=== PATIENT | female | born 1955 | race American Indian/Alaskan Native ===

== ENCOUNTER 2016-06-23 12:51 | Outpatient (CLI) | payer OTHER ==
--- NOTE | 2016-06-23 13:50 | XRay Report ---
RIGHT HAND: Pain. The bony architecture is intact. Bony alignment is normal. No soft tissue abnormalities are seen. The joint spaces appear preserved. IMPRESSION: Normal right hand.
== END 2016-06-23 12:52 | disposition home or self-care (01) ==
LOC: SPVIMAG 12:51
PROVIDERS: ATTEND Internal Medicine
DX: M79.641 Pain in right hand (principal)

== ENCOUNTER 2018-02-25 00:48 | Inpatient (IN) | payer OTHER ==
--- NOTE | 2018-02-25 01:42 | XRay Report ---
FINAL REPORT EXAM: XR CHEST ROUTINE 2V HISTORY: Shortness of breath TECHNIQUE: PA and lateral views of the chest were submitted. There are no previous studies available for comparison. FINDINGS: The heart is mildly enlarged. The lungs are diffusely congested with interstitial edema and thickenin g of the fissures. Pleural effusion is not seen. There are no localized infiltrates. The skeletal str uctures appear well maintained. IMPRESSION: Cardiomegaly with congestive heart failure pattern.
[2018-02-25] MEDS ORDERED: NITRO-BID 2% TP ONE (02:15)
[2018-02-25] MEDS ORDERED: ZOFRAN IV ONE (02:15)
[2018-02-25] MEDS ORDERED: SUBLIMAZE IV ONE (02:15)
[2018-02-25] MEDS ORDERED: ASPIRIN PO ONE (02:16)
--- NOTE | 2018-02-25 02:19 | Emergency Department Report ---
HPI - General Chief Complaint: Dyspnea/Respdistress Time Seen by Provider: 02/25/18 02:01 - [facility] HPI: Room 4 The patient is a 62-year-old female presenting with chief complaint of shortness breath and chest tightness. The patient states for the past 2-3 weeks she's had a dry cough and intermittent chest tightness associated with shortness of breath. Patient denies nausea/vomiting or diaphoresis. Patient admits to orthopnea and dyspnea on exertion. The patient states she went to [facility] yesterday and was diagnosed with bronchitis. Patient states she was given nebulizers and steroids but no lab work was performed. Location: Chest, lungs Duration: Intermittent 2-3 weeks Quality: Tightness, shortness of breath Severity: Moderate Modifying factors: [see above] Context: [see above] Mode of transportation: [not driving] ED Past Medical Hx - Past Medical History Hx Arthritis: Yes (Rheumatoid) Hx Asthma: Yes Additional medical history: Lupus - Surgical History Hx Cholecystectomy: Yes Additional Surgical History: Hysterectomy - Family History Family history: no significant - Social History Smoking Status: Former Smoker (stopped smoking yesterday) Substance Use Type: None (denies illicit drug use), Alcohol (occasional) ED Review of Systems ROS: Stated complaint: CHEST PAIN SOB Other details as noted in HPI Constitutional: denies: fever Eyes: denies: eye pain ENT: denies: throat pain Respiratory: cough, orthopnea, shortness of breath, SOB with exertion Cardiovascular: chest pain Endocrine: no symptoms reported Gastrointestinal: denies: abdominal pain Genitourinary: denies: dysuria Musculoskeletal: arthralgia. denies: back pain Neurological: denies: headache Physical Exam - Physical Exam Vital Signs: Vital Signs 02/25/18 01:08 Temperature 98.3 F Pulse Rate 105 H Respiratory 28 H Rate Blood Pressure 166/97 O2 Sat by Pulse 96 Oximetry Physical Exam: GENERAL: The patient is well-developed well-nourished female lying on stretcher not appearing to be in acute distress. [] HEENT: Normocephalic. Atraumatic. Extraocular motions are intact. Patient has moist mucous membranes. NECK: Supple. Trachea midline CHEST/LUNGS: Clear to auscultation. There is no respiratory distress noted. HEART/CARDIOVASCULAR: Regular. There is no tachycardia. There is no gallop rub or murmur. ABDOMEN: Abdomen is soft, nontender. Patient has normal bowel sounds. There is no abdominal distention. SKIN: There is no rash. There is no edema. There is no diaphoresis. NEURO: The patient is awake, alert, and oriented. The patient is cooperative. The patient has normal speech MUSCULOSKELETAL: There is no evidence of acute injury. ED Course Vital Signs 02/25/18 01:08 Temperature 98.3 F Pulse Rate 105 H Respiratory 28 H Rate Blood Pressure 166/97 O2 Sat by Pulse 96 Oximetry ED Medical Decision Making - Lab Data Result diagrams: 02/25/18 03:00 02/25/18 03:00 Laboratory Tests 02/25/18 02/25/18 02/25/18 03:00 03:00 03:00 WBC 8.3 RBC 4.75 Hgb 11.0 Hct 34.2 MCV 72 L MCH 23 L MCHC 32 RDW 16.1 H Plt Count 195 Lymph % (Auto) 10.7 L [place] % (Auto) 7.4 H Eos % (Auto) 0.4 Baso % (Auto) 1.0 Lymph # 0.9 L [place] # 0.6 Eos # 0.0 Baso # 0.1 Seg Neutrophils % 80.5 H Seg Neutrophils # 6.7 PT INR APTT Sodium 140 Potassium 4.0 Chloride 104.6 Carbon Dioxide 22 Anion Gap 17 BUN 12 Creatinine 0.7 Estimated GFR > 60 BUN/Creatinine Ratio 17 Glucose 112 H Calcium 8.8 Total Creatine Kinase 432 H CK-MB (CK-2) 2.1 CK-MB (CK-2) Rel Index 0.4 Troponin T < 0.010 NT-Pro-B Natriuret Pep 908.0 H 02/25/18 03:00 WBC RBC Hgb Hct MCV MCH MCHC RDW Plt Count Lymph % (Auto) [place] % (Auto) Eos % (Auto) Baso % (Auto) Lymph # [place] # Eos # Baso # Seg Neutrophils % Seg Neutrophils # PT 14.2 INR 1.06 APTT 29.2 Sodium Potassium Chloride Carbon Dioxide Anion Gap BUN Creatinine Estimated GFR BUN/Creatinine Ratio Glucose Calcium Total Creatine Kinase CK-MB (CK-2) CK-MB (CK-2) Rel Index Troponin T NT-Pro-B Natriuret Pep - EKG Data -: EKG Interpreted by Me EKG shows normal: sinus rhythm Rate: tachycardia (109 bpm) - EKG Data When compared to previous EKG there are: previous EKG unavailable Interpretation: nonspecific ST-T wave sarah (T-wave inversion in lead aVL) - Radiology Data Radiology results: report reviewed (chest x-ray), image reviewed (chest x-ray) interpreted by me: Chest x-ray-mild cephalization. No focal infiltrates, no pneumothorax [facility] [address] [place] [address] XRay Report Signed Patient: SOY MAYA MR#: [id number] : 1955 Acct:[id number] Age/Sex: 62 / F ADM Date: 02/25/18 Loc: ED Attending Dr: Ordering Physician: DANTE ORTEGA MD Date of Service: 02/25/18 Procedure(s): XR chest routine 2V Accession Number(s): [id number] cc: ED MD SHANNON Fluoro Time In Minutes: FINAL REPORT EXAM: XR CHEST ROUTINE 2V HISTORY: Shortness of breath TECHNIQUE: PA and lateral views of the chest were submitted. There are no previous studies available for comparison. FINDINGS: The heart is mildly enlarged. The lungs are diffusely congested with interstitial edema and thickening of the fissures. Pleural effusion is not seen. There are no localized infiltrates. The skeletal structures appear well maintained. IMPRESSION: Cardiomegaly with congestive heart failure pattern. Transcribed By: RB Dictated By: GUILLERMO ZAVALA MD Electronically Authenticated By: GUILLERMO ZAVALA MD Signed Date/Time: 02/25/18141 DD/ 3 TD/TT: 02/25/18143 - Differential Diagnosis CHF, ACS, pericarditis, GERD Critical care attestation.: If time is entered above; I have spent that time in minutes in the direct care of this critically ill patient, excluding procedure time. ED Disposition Clinical Impression: Chest tightness, Shortness of breath, CHF (congestive heart failure) Disposition: OP ADMIT IP TO THIS HOSP Is pt being admited?: Yes Does the pt Need Aspirin: Yes Condition: Fair Time of Disposition: 03:35 (hospitalist paged (Dr. Lucita Savage))
[2018-02-25 03:10] LABS: Basophils # (Auto) 0.1 K/mm3 (0.0-0.1); Eosinophils % (Auto) 0.4 % (0.0-4.3); Hematocrit 34.2 % (30.3-42.9); Lymphocytes # (Auto) 0.9 K/mm3 (1.2-5.4); Lymphocytes % (Auto) 10.7 % (13.4-35.0); Mean Corpuscular HGB Conc 32 % (30-34); Mean Corpuscular Volume 72 fl (79-97); Monocytes # (Auto) 0.6 K/mm3 (0.0-0.8); Monocytes % (Auto) 7.4 % (0.0-7.3); Platelet Count 195 K/mm3 (140-440); Red Blood Count 4.75 M/mm3 (3.65-5.03); Red Cell Distribution Width 16.1 % (13.2-15.2)
[2018-02-25 03:20] LABS: INR 1.06 (0.87-1.13)
[2018-02-25 03:21] LABS: Partial Thromboplastin Time 29.2 Sec. (24.2-36.6)
[2018-02-25 03:32] LABS: BUN/Creatinine Ratio 17; Blood Urea Nitrogen 12 mg/dL (7-17); Calcium 8.8 mg/dL (8.4-10.2); Creatine Kinase MB 2.1 ng/mL (0.0-4.0); Hemolysis Index 5
[2018-02-25] MEDS ORDERED: LASIX IV ONE (03:33)
--- NOTE | 2018-02-25 04:25 | History and Physical Report ---
History of Present Illness Date of examination: 02/25/18 History of present illness: 62-year-old woman with a history of asthma, lupus comes emergency room with complaints of shortness breath, PND and orthopnea 2 weeks denies lower extremity edema. Also complaining of chest pain in the epigastric area, stating it feels like a tightness, someone sitting on her chest, unclear along in the hospital, intermittent over the last 3 days, intensity 5/10 coronary lesion, cannot identify exacerbating factors. Review of systems Constitutional: no weight loss, chills, fever Ears, eyes, nose, mouth and throat: no nasal congestion, no nasal discharge, no sinus pressure, no vision change, no red eye. Neck: No neck pain or rigidity. Cardiovascular: no palpitations, +chest pain Respiratory: no cough, +shortness of breath Gastrointestinal: no hematochezia, abdominal pain Genitourinary : no frequency , no hematuria Musculoskeletal: no joint swelling or muscle ache Integumentary: no rash, no pruritis Neurological: no parathesias, no focal weakness Endocrine: no cold or heat intolerance, no polyuria or polydipsia Hematologic/Lymphatic: no easy bruising, no easy bleeding, no gland swelling Allergic/Immunologic: no urticaria, no angioedema. PAST MEDICAL HISTORY: asthma, lupus PAST SURGICAL HISTORY: Cholecystectomy, hysterectomy SOCIAL HISTORY: Social alcohol, no drugs, smokes several cigarettes a day FAMILY HISTORY: Hypertension Medications and Allergies Allergies Allergy/AdvReac Type Severity Reaction Status Date / Time Sulfa (Sulfonamide Allergy Hives Verified 02/25/18 04:29 Antibiotics) Home Medications Medication Instructions Recorded Confirmed Last Taken Type Alendronate Sodium [Fosamax] 70 mg PO 1XW 02/25/18 02/25/18 Unknown History Doxycycline Hyclate [Vibramycin] 100 mg PO BID 02/25/18 02/25/18 Unknown History Ferrous Sulfate [Iron] 325 mg PO DAILY 02/25/18 02/25/18 Unknown History Hydroxychloroquine 200 mg PO BID 02/25/18 02/25/18 Unknown History Leflunomide 20 mg PO DAILY 02/25/18 02/25/18 Unknown History guaiFENesin/DEXTROMETHORPHAN 100 mg PO TID PRN 02/25/18 02/25/18 Unknown History [Robafen Dm Cgh-Chest John Syrp] methylPREDNISolone 4 mg PO DAILY 02/25/18 02/25/18 Unknown History predniSONE 5 mg PO DAILY 02/25/18 02/25/18 Unknown History Exam - Physical Exam Narrative exam: General Apperance: The patient lying in bed, breathing comfortable HEENT: Normocephalic, atraumatic. Pupils equally round and reactive to light, EOMI, no sclericterus or JVD or thyromegaly or nodule. , no carotid bruit, mucous membranes moist, no exudate or erythema Heart: S1-S2, regular is rhythm Lungs: Crackles bilaterally, breathing comfortable Abdomen: Positive bowel sounds, soft, nontender, nondistended, no organomegaly Extremities: No edema cyanosis clubbing Skin: no rash, nodule, warm and dry Neuro: cranial nerves 2-12 intact, speech is fluent, motor/sensory intact - Constitutional Vitals: Temp Pulse Resp BP Pulse Ox 98.3 F 92 H 17 159/98 97 02/25/18 01:08 02/25/18 04:00 02/25/18 04:00 02/25/18 04:00 02/25/18 04:00 Results - Labs CBC & Chem 7: 02/25/18 03:00 02/25/18 03:00 Labs: Abnormal lab results 02/25/18 02/25/18 02/25/18 Range/Units 03:00 03:00 03:00 MCV 72 L (79-97) fl MCH 23 L (28-32) pg RDW 16.1 H (13.2-15.2) % Lymph % (Auto) 10.7 L (13.4-35.0) % [place] % (Auto) 7.4 H (0.0-7.3) % Lymph # 0.9 L (1.2-5.4) K/mm3 Seg Neutrophils % 80.5 H (40.0-70.0) % Glucose 112 H (65-100) mg/dL Total Creatine Kinase 432 H (30-135) units/L NT-Pro-B Natriuret Pep 908.0 H (0-900) pg/mL - Imaging and Cardiology EKG: image reviewed Chest x-ray: report reviewed Assessment and Plan Assessment new onset CHF, ?diasytolic Hypertensive urgency Chest pain Asthma Lupus Plan Admit to medicine Diurese and IV Lasix and lites are metabolic, ANIL inhibitor, aspirin Check cardiac enzymes, d-dimer, echo, stress test Consult cardiology Continue outpatient medications DVT prophylaxis
[2018-02-25] MEDS ORDERED: ZOFRAN IV PRN (04:26)
[2018-02-25] MEDS ORDERED: TYLENOL PO PRN (04:26)
[2018-02-25] MEDS ORDERED: SODIUM CHLORIDE FLUSH SYRINGE 10 ML IV PRN (04:26)
--- NOTE | 2018-02-25 08:25 | Progress Note ---
Assessment and Plan Assessment and plan: Patient is a 62 yo woman with a history of Asthma, RA and SLE under the care of Dr. Lima Meraz, recreational assistant presented to [facility] ED with worsening SOB and chest discomfort. Patient was seen at [facility] ED on Sunday and sent home on doxyc, neb, cough med, steroids and sent home for asthma attack. * 2v CXR: Cardiomegaly with CHF pattern. * pBNP 908 -Acute Diastolic Heart Failure: lasix, Echo, Cardiology consult -Chest pain, atypical: stress test pending -SLE and RA, just weaned off steroids 3 weeks prior to this illness, she was on steroids for about a year, now on plaquenil and leflunamide instead. -Asthma: o2 prn and nebs -Tobacco dependency: litigation counsel on stopping, ordered nicotine patch prolonged inpatient services 34 minutes History Interval history: Patient was seen and examined. Follow-up on current diagnosis of SOB. Overnight uneventful. Patient denies any chest pain, shortness breath, nausea/vomiting or severe headaches. Imaging, nursing note, chart, labs and old chart reviewed. Discussed with patient. Hospitalist Physical - Physical exam Narrative exam: Gen: thin, NAD, Awake, Alert, Orientated HEENT: NCAT, EOMI, PERRL, OP Clear Neck: supple, no adenopathy, no thyromegaly, no JVD CVS/Heart: RRR, normal S1S2, pulses present bilaterally Chest/Lungs: faint crackles left base, Symmetrical chest expansion, good air entry bilaterally GI/Abdomen: soft, NTND, good bowel sounds, no guarding or rebound /Bladder: no suprapubic tenderness, no CVA or paraspinal tenderness Extermity/Skin: no c/c/e, no obvious rash MSK: FROM x 4 Neuro: CN 2-12 grossly intact, no new focal deficits Psych: calm - Constitutional Vitals: Temp Pulse Resp BP Pulse Ox 98.0 F 93 H 16 151/90 98 02/25/18 05:17 02/25/18 05:17 02/25/18 05:17 02/25/18 05:17 02/25/18 05:17 Results - Labs CBC & Chem 7: 02/25/18 03:00 02/25/18 03:00 Labs: Laboratory Last Values WBC 8.3 K/mm3 (4.5-11.0) 02/25/18 03:00 RBC 4.75 M/mm3 (3.65-5.03) 02/25/18 03:00 Hgb 11.0 gm/dl (10.1-14.3) 02/25/18 03:00 Hct 34.2 % (30.3-42.9) 02/25/18 03:00 MCV 72 fl (79-97) L 02/25/18 03:00 MCH 23 pg (28-32) L 02/25/18 03:00 MCHC 32 % (30-34) 02/25/18 03:00 RDW 16.1 % (13.2-15.2) H 02/25/18 03:00 Plt Count 195 K/mm3 (140-440) 02/25/18 03:00 Lymph % (Auto) 10.7 % (13.4-35.0) L 02/25/18 03:00 [place] % (Auto) 7.4 % (0.0-7.3) H 02/25/18 03:00 Eos % (Auto) 0.4 % (0.0-4.3) 02/25/18 03:00 Baso % (Auto) 1.0 % (0.0-1.8) 02/25/18 03:00 Lymph # 0.9 K/mm3 (1.2-5.4) L 02/25/18 03:00 [place] # 0.6 K/mm3 (0.0-0.8) 02/25/18 03:00 Eos # 0.0 K/mm3 (0.0-0.4) 02/25/18 03:00 Baso # 0.1 K/mm3 (0.0-0.1) 02/25/18 03:00 Seg Neutrophils % 80.5 % (40.0-70.0) H 02/25/18 03:00 Seg Neutrophils # 6.7 K/mm3 (1.8-7.7) 02/25/18 03:00 PT 14.2 Sec. (12.2-14.9) 02/25/18 03:00 INR 1.06 (0.87-1.13) 02/25/18 03:00 APTT 29.2 Sec. (24.2-36.6) 02/25/18 03:00 Sodium 140 mmol/L (137-145) 02/25/18 03:00 Potassium 4.0 mmol/L (3.6-5.0) 02/25/18 03:00 Chloride 104.6 mmol/L (98-107) 02/25/18 03:00 Carbon Dioxide 22 mmol/L (22-30) 02/25/18 03:00 Anion Gap 17 mmol/L 02/25/18 03:00 BUN 12 mg/dL (7-17) 02/25/18 03:00 Creatinine 0.7 mg/dL (0.7-1.2) 02/25/18 03:00 Estimated GFR > 60 ml/min 02/25/18 03:00 BUN/Creatinine Ratio 17 % 02/25/18 03:00 Glucose 112 mg/dL (65-100) H 02/25/18 03:00 Calcium 8.8 mg/dL (8.4-10.2) 02/25/18 03:00 Total Creatine Kinase 432 units/L (30-135) H 02/25/18 03:00 CK-MB (CK-2) 2.1 ng/mL (0.0-4.0) 02/25/18 03:00 CK-MB (CK-2) Rel Index 0.4 (0-4) 02/25/18 03:00 Troponin T < 0.010 ng/mL (0.00-0.029) 02/25/18 03:00 NT-Pro-B Natriuret Pep 908.0 pg/mL (0-900) H 02/25/18 03:00
[2018-02-25 09:47] LABS: Creatine Kinase MB 2.2 ng/mL (0.0-4.0)
[2018-02-25] MEDS: LOPRESSOR PO SCH ×2 (09:49→23:04)
[2018-02-25] MEDS: ZESTRIL PO SCH (09:50)
[2018-02-25] MEDS: LOVENOX SUB-Q SCH (09:50)
[2018-02-25] MEDS: ASPIRIN PO SCH (09:50)
[2018-02-25] MEDS: SODIUM CHLORIDE FLUSH SYRINGE 10 ML IV SCH ×2 (09:51→23:03)
--- NOTE | 2018-02-25 12:46 | Event Note ---
Date: 02/25/18 Cardiology consultation is dictated. #1 chest pain etiology uncertain cardiac enzymes are negative. #2? Mild CHF probable diastolic heart failure #3 history of bronchial asthma and possible bronchitis within the past several days. #4 mitral regurgitation Patient is seen for cardiac evaluation overall cardiac status is stable. Echocardiogram shows the normal left ventricular systolic function. Patient does have mitral regurgitation. Current medications are reviewed and will continue the same for the time being. Will obtain a stress test once her pulmonary and cardiac status appeared to be better and more stable. Thank you Dr. Mixon for allowing me to participate in the care of this pleasant lady Dr. NAVDEEP Cote
[2018-02-25 12:49] LABS: Creatine Kinase MB 2.1 ng/mL (0.0-4.0)
--- NOTE | 2018-02-25 14:33 | Consultation ---
CARDIOLOGY EVALUATION REFERRING PHYSICIAN: Dr. Capps REASON FOR EVALUATION: Chest pain. HISTORY OF PRESENT ILLNESS: The patient is a 62-year-old female who is known to have a history of bronchial asthma and lupus came to the Emergency Room complaining about difficulty in breathing of about couple of weeks' duration. The patient was seen at Emergency Room at [facility] and was given a breathing treatment and was subsequently discharged. Intermittently, she notices tightness of the chest, but she feels that she is noticing when she has bronchospasm. She has no prior history of myocardial infarction, congestive heart failure, rheumatic fever, cardiac murmur, or other cardiovascular issues. No history of hypertension, diabetes, or hyperlipidemia. SOCIAL HISTORY: The patient smokes half pack per day, drinks alcohol occasionally. FAMILY HISTORY: Only positive for hypertension. REVIEW OF SYSTEMS: HEAD, EYES, EARS, NOSE AND THROAT: No symptoms. ENDOCRINE: No history of diabetes. GASTROINTESTINAL: No abdominal pain, nausea, or vomiting. Bowel habits have been regular. GENITOURINARY: No symptoms. CENTRAL NERVOUS SYSTEM: No symptoms. HEME/ONC: No symptoms. LOCOMOTOR: No symptoms. PAST HISTORY: History of cholecystectomy and hysterectomy. PHYSICAL EXAMINATION: GENERAL: Adult female, well built and nourished, in no distress. Pleasant and cooperative. VITAL SIGNS: Blood pressure is 139/82, pulse 75, respirations 18, oxygen saturation is 100%. HEAD, EYES, EARS, NOSE, AND THROAT: Unremarkable. NECK: Supple. No thyromegaly. Both carotids are palpable and equal. Neck veins are flat. CHEST: Symmetrical. LUNGS: Essentially clear. HEART: S1 and S2 are heard well. No S3. ABDOMEN: Soft, nontender. No hepatosplenomegaly. EXTREMITIES: No edema or calf tenderness. IMAGING DATA: EKG: Sinus tachycardia, left atrial abnormality, possible left ventricular hypertrophy. LABORATORY DATA: Hemoglobin 11, hematocrit 34.2. D-dimer 626. Sodium 140, potassium 4, BUN 12, creatinine 0.7, blood sugar 112. BNP 908. Troponin x 2 negative. CK-MB negative. Echocardiogram: Left ventricular chamber size is normal. Ejection fraction 50-55%. Moderate mitral regurgitation is present. Mild tricuspid regurgitation is present. Mean gradient across mitral valve is noted to be 8 mmHg. Chest x-ray: Cardiomegaly with mild pulmonary vascular congestion. IMPRESSION: 1. Chest tightness of questionable significance. 2. History of asthma. 3. ? Mild congestive heart failure. The patient is seen for cardiac evaluation. Clinically, cardiac status appears to be satisfactory. Echocardiogram shows normal left ventricular systolic function. Current medications are reviewed. We will continue the same. The patient will be monitored and followed closely with you. Thank you, Dr. Capps, for allowing me to participate in the care of this pleasant lady. JOB# [id number] CORNEL/NTS
[2018-02-25] MEDS: HABITROL TD SCH (17:37)
[2018-02-25] MEDS: LASIX PO SCH ×2 (17:37→23:04)
[2018-02-26] MEDS: LASIX PO SCH ×2 (05:14→18:42)
[2018-02-26 06:21] LABS: Eosinophils # (Auto) 0.2 K/mm3 (0.0-0.4); Eosinophils % (Auto) 5.2 % (0.0-4.3); Hematocrit 32.2 % (30.3-42.9); Hemoglobin 10.6 gm/dl (10.1-14.3); Lymphocytes % (Auto) 44.5 % (13.4-35.0); Mean Corpuscular HGB Conc 33 % (30-34); Mean Corpuscular Volume 72 fl (79-97); Monocytes # (Auto) 0.6 K/mm3 (0.0-0.8); Monocytes % (Auto) 13.8 % (0.0-7.3); Platelet Count 185 K/mm3 (140-440); Red Blood Count 4.49 M/mm3 (3.65-5.03); Red Cell Distribution Width 16.6 % (13.2-15.2)
[2018-02-26 06:41] LABS: BUN/Creatinine Ratio 21; Blood Urea Nitrogen 17 mg/dL (7-17); Calcium 8.6 mg/dL (8.4-10.2); Hemolysis Index 0
[2018-02-26] MEDS ORDERED: LEXISCAN IV ONE ×2 (11:06→11:08)
[2018-02-26] MEDS: ASPIRIN PO SCH (13:19)
[2018-02-26] MEDS: HABITROL TD SCH (13:19)
[2018-02-26] MEDS: ZESTRIL PO SCH (13:19)
[2018-02-26] MEDS: LOPRESSOR PO SCH ×2 (13:19→21:21)
[2018-02-26] MEDS: LOVENOX SUB-Q SCH (13:20)
--- NOTE | 2018-02-26 14:13 | Progress Note ---
Assessment and Plan S/p lexiscan MPI stress test this AM which was negative for ischemia, EF 58%. Currently stable cardiac status. Pt may discharge home from cardiology standpoint. Recommend follow up in our office with Dr. NAVDEEP Cote within 3-5 days of hospital discharge ([phone]). The patient has been seen in conjunction with Dr. NAVDEEP Cote who agrees with the assessment and plan of care. - Patient Problems (1) Chest pain Current Visit: Yes Status: Resolved (2) Acute heart failure with preserved ejection fraction Current Visit: Yes Status: Acute (3) Moderate mitral regurgitation Current Visit: Yes Status: Chronic (4) History of asthma Current Visit: Yes Status: Chronic Subjective Date of service: 02/26/18 Principal diagnosis: cp Interval history: for stress test, no current cardiac complaints. Objective Last Vital Signs Temp 98.0 F 02/26/18 13:36 Pulse 85 02/26/18 13:35 Resp 20 02/26/18 13:35 BP 144/89 02/26/18 13:35 Pulse Ox 99 02/26/18 13:35 - Physical Examination General: No Apparent Distress HEENT: Positive: PERRL, Normocephaly, Mucus Membranes Moist Neck: Positive: neck supple, trachea midline Cardiac: Positive: Reg Rate and Rhythm, S1/S2 Lungs: Positive: clear to auscultation Neuro: Positive: Grossly Intact Abdomen: Positive: Soft. Negative: Tender Skin: Negative: Rash, Wound Musculoskeletal: No Pain - Labs and Meds CBC 02/26/18 Range/Units 05:36 WBC 4.6 (4.5-11.0) K/mm3 RBC 4.49 (3.65-5.03) M/mm3 Hgb 10.6 (10.1-14.3) gm/dl Hct 32.2 (30.3-42.9) % Plt Count 185 (140-440) K/mm3 Lymph # 2.0 (1.2-5.4) K/mm3 [place] # 0.6 (0.0-0.8) K/mm3 Eos # 0.2 (0.0-0.4) K/mm3 Baso # 0.0 (0.0-0.1) K/mm3 Comprehensive Metabolic Panel 02/26/18 Range/Units 05:36 Sodium 138 (137-145) mmol/L Potassium 3.9 (3.6-5.0) mmol/L Chloride 101.0 (98-107) mmol/L Carbon Dioxide 27 (22-30) mmol/L BUN 17 (7-17) mg/dL Creatinine 0.8 (0.7-1.2) mg/dL Glucose 81 (65-100) mg/dL Calcium 8.6 (8.4-10.2) mg/dL - Imaging and Cardiology EKG: report reviewed, image reviewed Echo: report reviewed (02/25/2018: EF 50-55%, pseudonormalization, mod MR, mild TR)
[2018-02-26] MEDS ORDERED: HYDROMET PO PRN (16:40)
--- NOTE | 2018-02-26 16:49 | Progress Note ---
Assessment and Plan Assessment and plan: Patient is a 62 yo woman with a history of Asthma, RA and SLE under the care of Dr. Lima Meraz, director automotive presented to [facility] ED with worsening SOB and chest discomfort. Patient was seen at [facility] ED on Sunday and sent home on doxyc, neb, cough med, steroids and sent home for asthma attack. Patient still with cough, non productive * 2v CXR: Cardiomegaly with CHF pattern. * pBNP 908 -Acute Diastolic Heart Failure: lasix, Echo, Cardiology consult, input noted -Chest pain, atypical: stress test pending -SLE and RA, just weaned off steroids 3 weeks prior to this illness, she was on steroids for about a year, now on plaquenil and leflunamide instead. -Asthma: o2 prn and nebs -Tobacco dependency: phone counselor on stopping, ordered nicotine patch -Cough- Start on Hydromet, encourage ambulation. [place] Flutter valve Plan discussed with patient and family History Interval history: Patient seen and examined in no acute distress but still reports congestion sensation. Hospitalist Physical - Physical exam Narrative exam: Gen: thin, NAD, Awake, Alert, Orientated HEENT: NCAT, EOMI, PERRL, OP Clear Neck: supple, no adenopathy, no thyromegaly, no JVD CVS/Heart: RRR, normal S1S2, pulses present bilaterally Chest/Lungs: faint crackles left base persist, Symmetrical chest expansion, good air entry bilaterally GI/Abdomen: soft, NTND, good bowel sounds, no guarding or rebound /Bladder: no suprapubic tenderness, no CVA or paraspinal tenderness Extermity/Skin: no c/c/e, no obvious rash MSK: FROM x 4 Neuro: CN 2-12 grossly intact, no new focal deficits Psych: calm - Constitutional Vitals: Temp Pulse Resp BP Pulse Ox 98.0 F 85 20 144/89 99 02/26/18 13:36 02/26/18 13:35 02/26/18 13:35 02/26/18 13:35 02/26/18 13:35 Results - Labs CBC & Chem 7: 02/26/18 05:36 02/26/18 05:36 Labs: Laboratory Last Values WBC 4.6 K/mm3 (4.5-11.0) 02/26/18 05:36 RBC 4.49 M/mm3 (3.65-5.03) 02/26/18 05:36 Hgb 10.6 gm/dl (10.1-14.3) 02/26/18 05:36 Hct 32.2 % (30.3-42.9) 02/26/18 05:36 MCV 72 fl (79-97) L 02/26/18 05:36 MCH 24 pg (28-32) L 02/26/18 05:36 MCHC 33 % (30-34) 02/26/18 05:36 RDW 16.6 % (13.2-15.2) H 02/26/18 05:36 Plt Count 185 K/mm3 (140-440) 02/26/18 05:36 Lymph % (Auto) 44.5 % (13.4-35.0) H 02/26/18 05:36 [place] % (Auto) 13.8 % (0.0-7.3) H 02/26/18 05:36 Eos % (Auto) 5.2 % (0.0-4.3) H 02/26/18 05:36 Baso % (Auto) 1.0 % (0.0-1.8) 02/26/18 05:36 Lymph # 2.0 K/mm3 (1.2-5.4) 02/26/18 05:36 [place] # 0.6 K/mm3 (0.0-0.8) 02/26/18 05:36 Eos # 0.2 K/mm3 (0.0-0.4) 02/26/18 05:36 Baso # 0.0 K/mm3 (0.0-0.1) 02/26/18 05:36 Seg Neutrophils % 35.5 % (40.0-70.0) L 02/26/18 05:36 Seg Neutrophils # 1.6 K/mm3 (1.8-7.7) L 02/26/18 05:36 PT 14.2 Sec. (12.2-14.9) 02/25/18 03:00 INR 1.06 (0.87-1.13) 02/25/18 03:00 APTT 29.2 Sec. (24.2-36.6) 02/25/18 03:00 D-Dimer 626.00 ng/mlDDU (0-234) H 02/25/18 08:42 Sodium 138 mmol/L (137-145) 02/26/18 05:36 Potassium 3.9 mmol/L (3.6-5.0) 02/26/18 05:36 Chloride 101.0 mmol/L (98-107) 02/26/18 05:36 Carbon Dioxide 27 mmol/L (22-30) 02/26/18 05:36 Anion Gap 14 mmol/L 02/26/18 05:36 BUN 17 mg/dL (7-17) 02/26/18 05:36 Creatinine 0.8 mg/dL (0.7-1.2) 02/26/18 05:36 Estimated GFR > 60 ml/min 02/26/18 05:36 BUN/Creatinine Ratio 21 % 02/26/18 05:36 Glucose 81 mg/dL (65-100) 02/26/18 05:36 Calcium 8.6 mg/dL (8.4-10.2) 02/26/18 05:36 Total Creatine Kinase 375 units/L (30-135) H 02/25/18 12:05 CK-MB (CK-2) 2.1 ng/mL (0.0-4.0) 02/25/18 12:05 CK-MB (CK-2) Rel Index 0.5 (0-4) 02/25/18 12:05 Troponin T < 0.010 ng/mL (0.00-0.029) 02/25/18 12:05 NT-Pro-B Natriuret Pep 908.0 pg/mL (0-900) H 02/25/18 03:00 - Imaging and Cardiology Chest x-ray: image reviewed (mild vascular congestion)
--- NOTE | 2018-02-26 19:02 | Treadmill Report ---
INDICATIONS: The patient is brought to the cardiology lab and the Lexiscan stress test is performed. The patient tolerated the procedure well. FINDINGS: Post-stress images revealed fairly homogeneous distribution of the isotope with no significant reversibility to indicate ischemia. Accompanying gated study shows good systolic function with no wall motion abnormalities. Calculated ejection fraction is noted to be 58%. IMPRESSION: 1. Nuclear stress study is negative for significant reversible defects to indicate ischemia, good systolic function with a calculated ejection fraction of 58%. 2. Suggests clinical correlation. JOB# [id number] KB/NTS
[2018-02-26] MEDS: SODIUM CHLORIDE FLUSH SYRINGE 10 ML IV SCH ×2 (21:20)
[2018-02-27] MEDS: LASIX PO SCH (06:05)
[2018-02-27 07:57] VITALS: BP 124/72
[2018-02-27] MEDS: HABITROL TD SCH (10:15)
[2018-02-27] MEDS: LOVENOX SUB-Q SCH (10:15)
[2018-02-27] MEDS: LOPRESSOR PO SCH (10:16)
[2018-02-27] MEDS: ASPIRIN PO SCH (10:16)
[2018-02-27] MEDS: ZESTRIL PO SCH (10:16)
[2018-02-27] MEDS: SODIUM CHLORIDE FLUSH SYRINGE 10 ML IV SCH (10:17)
--- NOTE | 2018-02-27 11:42 | Discharge Summary ---
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 Patient was seen at [facility] ED on Sunday and sent home on doxyc, neb, cough med, steroids and sent home for asthma attack. Patient still with cough, non productive. Patient was seen by cardiology and stress test was done and negative. Patient was advised to quit tobacco use and also reduce salt intake. Start on Hydromet, encourage ambulation. [place] Flutter valve * 2v CXR: Cardiomegaly with CHF pattern. -Acute Diastolic Heart Failure -Chest pain, atypical secondary to costochondritis -SLE and RA, -Asthma -Tobacco dependency -Cough Disposition: TO HOME OR SELFCARE Time spent for discharge: 35 mins Core Measure Documentation - Palliative Care Palliative Care/ Comfort Measures: Not Applicable - Core Measures Any of the following diagnoses?: none - VTE Discharge Requirements Deep Vein Thrombosis/Pulmonary Embolism Present on Admission: No Exam - Physical Exam Narrative exam: Gen: thin, NAD, Awake, Alert, Orientated HEENT: NCAT, EOMI, PERRL, OP Clear Neck: supple, no adenopathy, no thyromegaly, no JVD CVS/Heart: RRR, normal S1S2, pulses present bilaterally Chest/Lungs: faint crackles left base persist, Symmetrical chest expansion, good air entry bilaterally GI/Abdomen: soft, NTND, good bowel sounds, no guarding or rebound /Bladder: no suprapubic tenderness, no CVA or paraspinal tenderness Extermity/Skin: no c/c/e, no obvious rash MSK: FROM x 4 Neuro: CN 2-12 grossly intact, no new focal deficits Psych: calm - Constitutional Vitals: Temp Pulse Resp BP Pulse Ox 98.6 F 67 16 124/72 97 02/27/18 07:55 02/27/18 10:16 02/27/18 07:55 02/27/18 10:16 02/27/18 07:55 Plan Activity: advance as tolerated, fall precautions Diet: low fat, low salt Special Instructions: record daily BP diary, smoking cessation Follow up with: AROLDO MONROY [Staff Physician] - 7 Days CRISELDA THAKKAR MD [Staff Physician] - 7 Days LUIS ANTONIO SIDDIQI MD [Staff Physician] - 7 Days Prescriptions: Furosemide [Lasix TAB] 20 mg PO DAILY #30 tablet HYDROcodone/HOMATROP 5-1.5 [HYDROcodone-Homatropin 5-1.5 mg per 5 ML] 10 ml PO Q6H PRN #14 udc PRN Reason: Cough Metoprolol [Lopressor TAB] 12.5 mg PO BID #60 tablet
== END 2018-02-27 16:51 | disposition home or self-care (01) | DRG 205 ==
LOC: ED 00:48 → 4A 04:37
PROVIDERS: ADMIT Internal Medicine; ATTEND Internal Medicine
DX: M94.0 Chondrocostal junction syndrome [Tietze] (principal); I50.31 Acute diastolic (congestive) heart failure; J45.909 Unspecified asthma, uncomplicated; M06.9 Rheumatoid arthritis, unspecified; F17.200 Nicotine dependence, unspecified, uncomplicated; M32.9 Systemic lupus erythematosus, unspecified; I16.0 Hypertensive urgency; M19.90 Unspecified osteoarthritis, unspecified site; Z71.6 Tobacco abuse counseling; Z88.2 Allergy status to sulfonamides; Z90.710 Acquired absence of both cervix and uterus; Z90.49 Acquired absence of other specified parts of digestive tract; Z82.49 Family history of ischemic heart disease and other diseases of the circulatory system; Z79.899 Other long term (current) drug therapy; Z72.89 Other problems related to lifestyle
CPT/HCPCS: 36415; 71046; 78452; 80048; 82550; 82553; 83880; 84484; 85025; 85379; 85610; 85730; 93005; 93010; 93017; 93306; 94760; G0378; A9502; J1650; J1940; J2405; J2785; J3010